=== PATIENT | female | born 1975 | race Asian ===

== ENCOUNTER 2023-12-23 14:48 | Emergency (ER) | payer OTHER ==
[~2023-12-23] VITALS: Ht 160 cm; Wt 83.0 kg
[2023-12-23 15:00] VITALS: BP 147/91; PULSE 64; RESP 18; TEMP 98.1
[2023-12-23] MEDS: TraMADol HCL 50 MG TABLET PO ONE (18:06)
[2023-12-23] MEDS: KETOROLAC TROMETHAMINE 30 MG/ML VIAL IM ONE (18:06)
[2023-12-23] MEDS ORDERED: LIDO700A15 TP (18:24)
== END 2023-12-23 18:53 | disposition home or self-care (01) ==
LOC: EMS 14:48
DX: S46.001A Unspecified injury of muscle(s) and tendon(s) of the rotator cuff of right shoulder, initial encounter (principal); I10 Essential (primary) hypertension; X58.XXXA Exposure to other specified factors, initial encounter; Y93.89 Activity, other specified; Y92.89 Other specified places as the place of occurrence of the external cause; Y99.8 Other external cause status
CPT/HCPCS: 99283; 73030; 96372; J1885